=== PATIENT | female | born 1985 ===

== ENCOUNTER 2021-01-24 05:47 | Inpatient (IN) ==
--- NOTE | 2021-01-15 13:40 | History and Physical Report ---
DATE OF ADMISSION: 01/24/2021 The patient is seen in the office and this H and P is being dictated for the day of admission. HISTORY OF PRESENT ILLNESS: This is a 35-year-old , due date is 01/25/2021. The patient is therefore 38 weeks and 5 days today. The patient has had unremarkable ; however, ultrasounds including the one done today showed the infant is breech. I have discussed the risks of version versus section with the patient, and the patient has agreed to undergo section. course is unremarkable. LABORATORIES: The patient's blood type is A negative, antibody negative, rubella immune, GBS negative. HIV negative as well. COURSE: Has been unremarkable. PAST MEDICAL HISTORY: No history of diabetes, hypertension or asthma. PAST SURGICAL HISTORY: The patient has had dental surgery in the past. SOCIAL HISTORY: The patient denies tobacco, drug or alcohol use. FAMILY HISTORY: Unremarkable. Nonsignificant. PHYSICAL EXAMINATION: GENERAL: Well-developed, well-nourished white female in no acute distress. HEART: S1, S2, regular rhythm and rate. LUNGS: Clear to auscultation bilaterally. ABDOMEN: The patient is gravid. EXTREMITIES: No cyanosis, clubbing or edema. ASSESSMENT AND PLAN: A 35-year-old 1, para 0, at 38 weeks and 5 days, breech presentation. Discussed version versus section with the patient. The patient has agreed to undergo section. The patient is scheduled today in the office for date of surgery. The patient will sign consent on the morning of surgery with the physician on-call. We discussed risks of surgery including infection, bleeding, and damage to adjacent structures.
--- NOTE | 2021-01-22 12:55 | Anesthesiology Consultation ---
Date of Service January 22, 2021 Assessment & Plan (1) Encounter for pre-operative examination: Chart Review Chart Review: temporary data entry clerk initiated Per nursing assessment 01/22/21, pt resides in [facility]. No recent travel. Wears mask in public. No known Covid positive contacts or Covid related symptoms. Pt's does get tested occ secondary to [facility] protocol- had Covid test 01/22/21- results pending. No known Covid infection in the past 90 days. Pt will be calling surgeon to get Covid testing done prior to procedure= await results. History Surgery Operation Date: 01/24/21 07:30 Proposed Procedures p Section - Jos Portillo MD Height/Weight Height: 5 ft 5 in Weight: 59.874 kg Allergies Allergy/AdvReac Type Severity Reaction Status Date / Time Penicillins Allergy Intermediate "inflammation Verified 01/22/21 11:35 all over body" Medications Home Medications Medication Instructions Recorded Confirmed Last Taken vit-ferrous sulfat-FA 1 tab PO QAM 01/22/21 01/22/21 Unknown [] Past Medical History Medical History Breech presentation of fetus reason for scheduled Past Family History Family History Grandmother (Paternal) Family history of diabetes mellitus Grandmother (Maternal) Family history of diabetes mellitus Other No family history of adverse response to anesthesia Past Surgical History Surgical History History of wisdom tooth extraction Social History Smoking Status: Never smoker Do You Dip or Chew Tobacco: No Hx Alcohol Use: No Hx Substance Use: No substance use type: does not use
[2021-01-24] MEDS ORDERED: LACTATED RINGER'S 1,000 ML IV SCH ×3 (06:00→09:29)
[2021-01-24] MEDS ORDERED: CITRIC ACID/SODIUM CITRATE 15 ML UDC PO SCH (06:07)
[2021-01-24] MEDS ORDERED: ceFAZolin 2000MG 2,000 MG/15 ML SYR IV SCH (06:10)
[2021-01-24 06:38] LABS: Hemoglobin 11.7 g/dL (12.0-16.0); Mean Corpuscular Hemoglobin 32.4 pg (25-34); Mean Corpuscular Hgb Conc 33.4 g/dL (32-36); RDW Coefficient of Variation 13.5 % (11.5-14.5); Red Blood Count 3.61 M/uL (4.2-5.4); White Blood Count 7.97 K/uL (4.8-10.8)
[2021-01-24] MEDS ORDERED: MoRPHine SULFATE PF 1 MG/ML 10 ML AMP/VIAL ONE (06:44)
[2021-01-24] MEDS ORDERED: fentaNYL citrate 100 MCG/2 ML VIAL ONE (06:44)
[2021-01-24] MEDS ORDERED: OXYTOCIN 10 UNITS/ML VIAL ONE (06:44)
[2021-01-24 06:53] LABS: Basophils # (auto) 0.02 K/uL (0-0.2); Basophils % (auto) 0.3 %; Eosinophils # (auto) 0.13 K/uL (0-0.5); Eosinophils % (auto) 1.6 %; Giant Platelets 1+; Immature Granulocytes # (auto) 0.02 K/uL (0.00-0.02); Immature Granulocytes % (auto) 0.3 %; Lymphocytes % (auto) 21.3 %; Mean Platelet Volume 12.6 fL (7.4-10.4); Monocytes # (auto) 0.54 K/uL (0.11-0.59); Monocytes % (auto) 6.8 %; Neutrophils # (auto) 5.56 K/uL (1.4-6.5); Neutrophils % (auto) 69.7 %; Platelet Count 121 K/uL (130-400); Platelet Estimate Normal (Normal)
[2021-01-24] MEDS ORDERED: diphenhydrAMINE 50 MG/ML VIAL IV PRN (07:16)
[2021-01-24] MEDS ORDERED: ePHEDrine sulfate 50 MG/ML AMP IV PRN (07:16)
[2021-01-24] MEDS ORDERED: MoRPHine SULFATE PF 1 MG/ML 10 ML AMP/VIAL INT SPINAL ONE (07:16)
[2021-01-24] MEDS ORDERED: MoRPHine SULFATE 2 MG/ML CARP IV PRN (07:16)
[2021-01-24] MEDS ORDERED: NALOXONE HCL 0.4 MG/1 ML VIAL/CARP IV PRN (07:16)
[2021-01-24] MEDS ORDERED: NALOXONE HCL 1 MG in SODIUM CHLORIDE 0.9% 1000ML 1,000 ML IV PRN (07:16)
[2021-01-24] MEDS ORDERED: NALOXONE HCL 0.08 MG in SYRINGE 1.8 ML IV PRN (07:16)
[2021-01-24] MEDS ORDERED: LACTATED RINGER'S 500 ML IV PRN (07:16)
[2021-01-24] MEDS ORDERED: PROMETHAZINE HCL 25 MG in SODIUM CHLORIDE 0.9% 50 ML IV PRN (07:16)
[2021-01-24] MEDS ORDERED: ONDANSETRON INJ 2 MG/ML 2 ML VIAL IV PRN (07:16)
[2021-01-24] MEDS ORDERED: DC INTRASPINAL MORPHINE SCH (07:30)
[2021-01-24] MEDS ORDERED: NO NARCOTICS OR SEDATIVES SCH (07:30)
[2021-01-24] MEDS ORDERED: SODIUM CHLORIDE 0.9% 1000ML 1,000 ML IV SCH (07:30)
--- NOTE | 2021-01-24 07:33 | History & Physical Bridge Note ---
Date of Service January 24, 2021 History & Physical Bridge Note I have examined the patient, reviewed the History & Physical and in the interval since the performance of the History & Physical I have noted the following changes of clinical significance: no changes noted
[2021-01-24] MEDS ORDERED: ePHEDrine sulfate 50 MG/ML SYR ONE (08:00)
[2021-01-24] MEDS ORDERED: PHENYLEPHRINE 100MCG/ML 5ML SYR ONE (08:00)
[2021-01-24] MEDS ORDERED: ONDANSETRON INJ 2 MG/ML 2 ML VIAL ONE (08:28)
--- NOTE | 2021-01-24 08:44 | Post Operative Brief Note ---
Immediate Post Op Note v1 Date of Surgery January 24, 2021 Pre & Post Diagnosis Operation Date: 01/24/21 07:30 Pre-Op Diagnosis: Intrauterine at 40 weeks gestation. Breech presentation. Post-Op Diagnosis: Same I identified the patient and participated in the time-out.: Yes Procedure Operation Date: 01/24/21 07:30 Actual Procedures p Section in LD (OR#3) with of live female child at 0813(Not Applicable) - Jos Portillo MD Surgeon Jos Portillo MD Independent Producer BRISA Yost Estimated Blood Loss 600 Findings Consistent with Post-Op Diagnosis Drains Stanton Catheter
--- NOTE | 2021-01-24 09:24 | Anesthesiology Progress Note ---
Date of Service January 24, 2021 Anesthesia Post Procedure Vital Signs Vital Signs: Temp Pulse Resp BP Pulse Ox 01/24/21 09:17 73 98 01/24/21 09:13 60 111/66 01/24/21 09:12 66 97 01/24/21 09:07 66 100 01/24/21 09:03 67 104/65 01/24/21 09:02 71 100 01/24/21 08:57 77 100 01/24/21 08:54 77 104/63 01/24/21 07:08 36.7 C 20 01/24/21 07:04 69 106/73 01/24/21 06:09 36.8 C 70 18 106/75 01/24/21 06:07 36.8 C 18 Transfer of Care Handoff Completed per policy Notes Mental Status: alert / awake / arousable and participated in evaluation Patient Amnestic to Procedure: Yes Nausea / Vomiting: adequately controlled Pain: adequately controlled Airway Patency, RR, SpO2: stable & adequate BP & HR: stable & adequate Hydration State: stable & adequate Anesthetic Complications: no major complications apparent and Pt Satisfied with anesthetic care
[2021-01-24] MEDS ORDERED: BENZOCAINE 20% AER SPR 82.5 GM CAN EXT PRN (09:29)
[2021-01-24] MEDS ORDERED: SENNA 8.6 MG TAB PO PRN (09:29)
[2021-01-24] MEDS ORDERED: HYDROCORTISONE ACETATE 25 MG SUPP PR PRN (09:29)
[2021-01-24] MEDS ORDERED: SUPERCREAM 0.870% 15 GM JAR EXT PRN (09:29)
[2021-01-24] MEDS ORDERED: MAGNESIUM HYDROXIDE SUSP 30 ML UDC PO PRN (09:29)
[2021-01-24] MEDS ORDERED: NON-FORMULARY MEDICATION (Prenatal Vit-Ferrous Sulfat-Fa 27 mg iron- 0.8 mg Tablet) PO SCH (09:29)
[2021-01-24] MEDS ORDERED: DIPHTHERIA/TETANUS/PERTUSSIS 0.5 ML SYR/VIAL IM ONE (09:29)
[2021-01-24] MEDS: KETOROLAC 30 MG/ML VIAL IV PRN ×2 (10:37→23:39)
[2021-01-24] MEDS: OXYTOCIN 20 UNITS in LACTATED RINGER'S 1,000 ML IV SCH ×2 (10:38→19:12)
--- NOTE | 2021-01-24 14:28 | Operative Report (OR) ---
DATE OF OPERATION: 01/24/2021 PREOPERATIVE DIAGNOSES: Term at 40 weeks with flavia breech. POSTOPERATIVE DIAGNOSES: Term at 40 weeks with flavia breech. PROCEDURE: Primary section, low segment, transverse. SURGEON: Jos Portillo MD. ENVIRONMENTAL SAMPLING TECHNICIAN: BRISA Hernandez. ANESTHESIA: Spinal. CLINICAL HISTORY: The patient is a 35-year-old female 1, para 0, at 40 weeks, admitted for an elective primary section for flavia breech presentation. Prior to the start of the procedure, the patient had an ultrasound confirming the presentation. Timeout was called and antibiotics were given preop. DESCRIPTION OF PROCEDURE: Under satisfactory spinal anesthesia, the patient was prepped and draped in usual sterile fashion. A low Pfannenstiel incision was made, carrying down into the abdominal layers in successive layers without difficulty. Upon entering into the lower uterine segment, pickups with teeth and Metzenbaums were then used to develop a bladder flap. A low segment transverse incision over the lower uterine segment was made. The incision was widened in the AP diameter. Amniotic sac was nicked and found to be clear. Baby in the flavia breech presentation. Delivery uneventful delivering a live female with the aid of fundal pressure in the flavia breech presentation without difficulty. The cord was wrapped around the neck x2, loosened at the time of delivery. The cord was doubly clamped and cut. Baby was handed to mixing tank operator. Apgars 8 and 9, weight 6 pounds 10 ounces. Cord blood was obtained. Placenta delivered spontaneously and intact. Uterus was not able to be removed. The ovaries bilaterally were found to be within normal limits. The uterus was closed in a double layer closure with 0 Vicryl suture in a continuous interlocking fashion followed by a second imbricating suture of 0 Vicryl suture. The initial sponge, needle, and instrument count were found to be correct. The lower uterine incision was inspected, no active bleeding. The muscle was reapproximated using 0 Vicryl suture in a [id number] fashion. The fascia was then reapproximated using 0 Vicryl suture in a continuous fashion from both ends. Subcuticular space was then irrigated. Bleeders were cauterized. The skin was then reapproximated with 4-0 Monocryl suture and then Steri-Strips were used for the dressing. Telfa and ABD were applied. Clear urine was noted from the Stanton. ESTIMATED BLOOD LOSS: 600 mL. TOTAL FLUIDS: 700 mL. URINE: 200 mL. The patient was then placed supine on a stretcher. With the final sponge, needle and instrument counts being correct, the patient was placed on a stretcher and taken to recovery room on labor and delivery in stable condition. Jayshree Figueroa was the assistant community director. She was needed for retraction, assisting at delivery and retraction as needed for reapproximating of all the tissues. I attest to the content of the Intraoperative Record and any orders documented therein. Any exception s are noted below.
[2021-01-24] MEDS: SIMETHICONE 80 MG CHEW PO SCH ×3 (15:24→21:30)
[2021-01-24] MEDS: DOCUSATE SODIUM 100 MG CAP PO SCH (21:30)
[2021-01-25] MEDS ORDERED: diphenhydrAMINE 50 MG/ML VIAL IV PRN (01:17)
[2021-01-25] MEDS ORDERED: MEPERIDINE HCL 50 MG/ML CARP IV PRN (01:17)
[2021-01-25] MEDS ORDERED: diphenhydrAMINE Capsule 25 MG CAP PO PRN (01:17)
[2021-01-25] MEDS ORDERED: PROMETHAZINE HCL 25 MG in SODIUM CHLORIDE 0.9% 50 ML IV PRN (01:17)
[2021-01-25] MEDS ORDERED: ONDANSETRON INJ 2 MG/ML 2 ML VIAL IV PRN (01:17)
[2021-01-25] MEDS ORDERED: KETOROLAC 30 MG/ML VIAL IV PRN (01:17)
[2021-01-25] MEDS: oxyCODONE/ACETAMINOPHEN 5mg/325mg TAB PO PRN ×5 (03:37→22:36)
[2021-01-25 06:56] LABS: Hematocrit (blood only) 32.8 % (37-47); Hemoglobin 11.3 g/dL (12.0-16.0); Mean Corpuscular Hemoglobin 32.6 pg (25-34); Mean Corpuscular Hgb Conc 34.5 g/dL (32-36); Mean Corpuscular Volume 94.5 fL (80-100); Mean Platelet Volume 12.9 fL (7.4-10.4); Platelet Count 116 K/uL (130-400); RDW Coefficient of Variation 13.6 % (11.5-14.5); RDW Standard Deviation 46.7 fL (36.4-46.3); Red Blood Count 3.47 M/uL (4.2-5.4); White Blood Count 12.01 K/uL (4.8-10.8)
[2021-01-25 06:57] LABS: Basophils # (auto) 0.01 K/uL (0-0.2); Basophils % (auto) 0.1 %; Eosinophils # (auto) 0.05 K/uL (0-0.5); Eosinophils % (auto) 0.4 %; Immature Granulocytes # (auto) 0.02 K/uL (0.00-0.02); Immature Granulocytes % (auto) 0.2 %; Lymphocytes # (auto) 0.95 K/uL (1.2-3.4); Lymphocytes % (auto) 7.9 %; Monocytes # (auto) 0.37 K/uL (0.11-0.59); Monocytes % (auto) 3.1 %; Neutrophils # (auto) 10.61 K/uL (1.4-6.5); Neutrophils % (auto) 88.3 %; Platelet Estimate Normal (Normal)
--- NOTE | 2021-01-25 07:46 | Obstetrical Progress Note ---
Date of Service January 25, 2021 Assessment & Plan Admission and Anticipated Discharge Date Admission Date: January 24, 2021 Subjective Patient is seen and examined. She feels well, no complaints. Pain is under control with oral meds. Ambulating without dizziness Voiding without difficulty Tolerating regular diet with out N&V Flatus + BM neg Bleeding is minimal No fever/ chills/ CP/ SOB/ N&V/ Leg pain Breast feeding without problems Vital Signs Temp Pulse Pulse Resp BP BP Pulse Ox 01/25/21 07:03 36.7 C 76 16 97/54 L 98 01/25/21 04:30 36.4 C L 72 18 99/62 L 99 01/25/21 01:15 18 99 01/25/21 00:30 18 100 01/24/21 23:05 36.8 C 65 18 100/63 100 01/24/21 22:00 16 100 01/24/21 21:00 36.7 C 71 18 107/70 100 01/24/21 20:00 16 100 Lab Results 01/24/21 01/24/21 01/25/21 Range/Units 06:15 06:15 06:01 WBC 7.97 12.01 H (4.8-10.8) K/uL RBC 3.61 L 3.47 L (4.2-5.4) M/uL Hgb 11.7 L 11.3 L (12.0-16.0) g/dL Hct 35.0 L 32.8 L (37-47) % MCV 97.0 94.5 (80-100) fL MCH 32.4 32.6 (25-34) pg MCHC 33.4 34.5 (32-36) g/dL RDW Std Deviation 48.0 H 46.7 H (36.4-46.3) fL RDW Coeff of Lizzy 13.5 13.6 (11.5-14.5) % Plt Count 121 L 116 L (130-400) K/uL MPV 12.6 H 12.9 H (7.4-10.4) fL Immature Gran % (Auto) 0.3 0.2 % Neut % (Auto) 69.7 88.3 % Lymph % (Auto) 21.3 7.9 % [place] % (Auto) 6.8 3.1 % Eos % (Auto) 1.6 0.4 % Baso % (Auto) 0.3 0.1 % Neut # (Auto) 5.56 10.61 H (1.4-6.5) K/uL Lymph # (Auto) 1.70 0.95 L (1.2-3.4) K/uL [place] # (Auto) 0.54 0.37 (0.11-0.59) K/uL Eos # (Auto) 0.13 0.05 (0-0.5) K/uL Baso # (Auto) 0.02 0.01 (0-0.2) K/uL Immature Gran # (Auto) 0.02 0.02 (0.00-0.02) K/uL Platelet Estimate Normal Normal (Normal) Giant Platelets 1+ Blood Type A Negative Antibody Screen POSITIVE A Antibody Identification Anti-D due to RhIg Antibody ID Comment PE: General: Alert, orientedx3, NAD CVS: S1S2 RRR Lungs; CTAB Abd: soft, NT, ND, BS+, fundus firm, below Umbilicus Incision/ Dressing: Clean, dry, intact Perineum intact, Lochia rubra minimal Ext; NT, no edema AP: 35 yo s/p C Section, pod# 1 VSS Afebrile doing well Continue routine postop care Encourage ambulation, PO intake All questions were answered Results & Data ([facility]) Vital Signs (Past 12 Hours) Vital Signs Temp Pulse Pulse Resp BP BP Pulse Ox 01/25/21 07:03 36.7 C 76 16 97/54 L 98 01/25/21 04:30 36.4 C L 72 18 99/62 L 99 01/25/21 01:15 18 99 01/25/21 00:30 18 100 01/24/21 23:05 36.8 C 65 18 100/63 100 01/24/21 22:00 16 100 01/24/21 21:00 36.7 C 71 18 107/70 100 01/24/21 20:00 16 100
[2021-01-25] MEDS: DOCUSATE SODIUM 100 MG CAP PO SCH ×2 (08:46→19:54)
[2021-01-25] MEDS: FERROUS SULFATE 325 MG TAB PO SCH (08:46)
[2021-01-25] MEDS: PRENATAL VITAMIN 1 TAB PO SCH (08:46)
[2021-01-25] MEDS: SIMETHICONE 80 MG CHEW PO SCH ×4 (08:46→19:54)
[2021-01-25] MEDS: IBUPROFEN 600 MG TAB PO PRN ×4 (08:54→22:36)
[2021-01-25] MEDS ORDERED: bisacodyL 5 MG TABEC PO SCH (20:00)
[2021-01-26] MEDS: oxyCODONE/ACETAMINOPHEN 5mg/325mg TAB PO PRN ×4 (02:57→21:03)
[2021-01-26] MEDS: IBUPROFEN 600 MG TAB PO PRN ×4 (06:25→21:04)
[2021-01-26 06:43] LABS: Hematocrit (blood only) 31.4 % (37-47); Hemoglobin 10.5 g/dL (12.0-16.0); Mean Corpuscular Hemoglobin 32.6 pg (25-34); Mean Corpuscular Hgb Conc 33.4 g/dL (32-36); Mean Corpuscular Volume 97.5 fL (80-100); Mean Platelet Volume 12.6 fL (7.4-10.4); Platelet Count 122 K/uL (130-400); RDW Coefficient of Variation 13.5 % (11.5-14.5); Red Blood Count 3.22 M/uL (4.2-5.4); White Blood Count 9.91 K/uL (4.8-10.8)
[2021-01-26 07:17] LABS: Basophils # (auto) 0.03 K/uL (0-0.2); Basophils % (auto) 0.3 %; Eosinophils # (auto) 0.22 K/uL (0-0.5); Eosinophils % (auto) 2.2 %; Immature Granulocytes # (auto) 0.03 K/uL (0.00-0.02); Immature Granulocytes % (auto) 0.3 %; Lymphocytes # (auto) 1.18 K/uL (1.2-3.4); Lymphocytes % (auto) 11.9 %; Monocytes # (auto) 0.54 K/uL (0.11-0.59); Monocytes % (auto) 5.4 %; Neutrophils # (auto) 7.91 K/uL (1.4-6.5); Neutrophils % (auto) 79.9 %
[2021-01-26] MEDS: FERROUS SULFATE 325 MG TAB PO SCH (08:25)
[2021-01-26] MEDS: DOCUSATE SODIUM 100 MG CAP PO SCH ×2 (08:25→21:03)
[2021-01-26] MEDS: SIMETHICONE 80 MG CHEW PO SCH ×4 (08:25→21:03)
[2021-01-26] MEDS: PRENATAL VITAMIN 1 TAB PO SCH (08:25)
[2021-01-26] MEDS ORDERED: bisacodyL 10 MG SUPP PR PRN (08:57)
[2021-01-26] MEDS ORDERED: ACETAMINOPHEN 325 MG TAB PO PRN (10:09)
--- NOTE | 2021-01-26 10:11 | Obstetrical Progress Note ---
Date of Service January 26, 2021 Assessment & Plan Admission and Anticipated Discharge Date Admission Date: January 24, 2021 Subjective Patient is seen and examined. She feels well, no complaints. Pain is under control with oral meds. Ambulating without dizziness. Voiding without difficulty Tolerating regular diet with out N&V Flatus + BM neg Bleeding is minimal No fever/ chills/ CP/ SOB/ N&V/ Leg pain Breast feeding without problems Vital Signs Temp Pulse Pulse Resp BP BP BP 01/26/21 07:09 36.8 C 65 16 103/67 01/26/21 00:00 36.8 C 77 16 80/40 L 01/25/21 15:45 36.7 C 73 16 96/60 L 01/25/21 13:35 36.9 C 80 18 100/63 01/25/21 10:55 36.7 C 70 16 115/69 Pulse Ox 01/26/21 07:09 99 01/26/21 00:00 97 01/25/21 15:45 97 01/25/21 13:35 98 01/25/21 10:55 98 Lab Results 01/24/21 01/24/21 01/25/21 Range/Units 06:15 06:15 06:01 WBC 7.97 (4.8-10.8) K/uL RBC 3.61 L (4.2-5.4) M/uL Hgb 11.7 L (12.0-16.0) g/dL Hct 35.0 L (37-47) % MCV 97.0 (80-100) fL MCH 32.4 (25-34) pg MCHC 33.4 (32-36) g/dL RDW Std Deviation 48.0 H (36.4-46.3) fL RDW Coeff of Lizzy 13.5 (11.5-14.5) % Plt Count 121 L (130-400) K/uL MPV 12.6 H (7.4-10.4) fL Immature Gran % (Auto) 0.3 % Neut % (Auto) 69.7 % Lymph % (Auto) 21.3 % [place] % (Auto) 6.8 % Eos % (Auto) 1.6 % Baso % (Auto) 0.3 % Neut # (Auto) 5.56 (1.4-6.5) K/uL Lymph # (Auto) 1.70 (1.2-3.4) K/uL [place] # (Auto) 0.54 (0.11-0.59) K/uL Eos # (Auto) 0.13 (0-0.5) K/uL Baso # (Auto) 0.02 (0-0.2) K/uL Immature Gran # (Auto) 0.02 (0.00-0.02) K/uL Platelet Estimate Normal (Normal) Giant Platelets 1+ Blood Type A Negative A Negative Antibody Screen POSITIVE A Cancelled Antibody Identification Anti-D due to RhIg Antibody ID Comment Screen Negative (Negative) 01/25/21 01/26/21 Range/Units 06:01 06:14 WBC 12.01 H 9.91 (4.8-10.8) K/uL RBC 3.47 L 3.22 L (4.2-5.4) M/uL Hgb 11.3 L 10.5 L (12.0-16.0) g/dL Hct 32.8 L 31.4 L (37-47) % MCV 94.5 97.5 (80-100) fL MCH 32.6 32.6 (25-34) pg MCHC 34.5 33.4 (32-36) g/dL RDW Std Deviation 46.7 H 48.0 H (36.4-46.3) fL RDW Coeff of Lizzy 13.6 13.5 (11.5-14.5) % Plt Count 116 L 122 L (130-400) K/uL MPV 12.9 H 12.6 H (7.4-10.4) fL Immature Gran % (Auto) 0.2 0.3 % Neut % (Auto) 88.3 79.9 % Lymph % (Auto) 7.9 11.9 % [place] % (Auto) 3.1 5.4 % Eos % (Auto) 0.4 2.2 % Baso % (Auto) 0.1 0.3 % Neut # (Auto) 10.61 H 7.91 H (1.4-6.5) K/uL Lymph # (Auto) 0.95 L 1.18 L (1.2-3.4) K/uL [place] # (Auto) 0.37 0.54 (0.11-0.59) K/uL Eos # (Auto) 0.05 0.22 (0-0.5) K/uL Baso # (Auto) 0.01 0.03 (0-0.2) K/uL Immature Gran # (Auto) 0.02 0.03 H (0.00-0.02) K/uL Platelet Estimate Normal (Normal) Giant Platelets Blood Type Antibody Screen Antibody Identification Antibody ID Comment Screen (Negative) PE: General: Alert, orientedx3, NAD CVS: S1S2 RRR Lungs; CTAB Abd: soft, NT, ND, BS+, fundus firm, below Umbilicus Incision: Clean, dry, intact Perineum intact, Lochia rubra minimal Ext; NT, no edema AP: 35 yo s/p C Section, pod# 2 VSS Afebrile doing well Continue routine postop care Encourage ambulation, PO intake All questions were answered D/C home tomorrow Results & Data ([facility]) Vital Signs (Past 12 Hours) Vital Signs Temp Pulse Resp BP BP Pulse Ox 01/26/21 07:09 36.8 C 65 16 103/67 99 01/26/21 00:00 36.8 C 77 16 80/40 L 97
[2021-01-27] MEDS: IBUPROFEN 600 MG TAB PO PRN ×3 (04:16→12:28)
[2021-01-27] MEDS: oxyCODONE/ACETAMINOPHEN 5mg/325mg TAB PO PRN ×3 (04:17→12:28)
[2021-01-27] MEDS: PRENATAL VITAMIN 1 TAB PO SCH (08:31)
[2021-01-27] MEDS: DOCUSATE SODIUM 100 MG CAP PO SCH (08:31)
[2021-01-27] MEDS: SIMETHICONE 80 MG CHEW PO SCH (08:31)
[2021-01-27] MEDS: FERROUS SULFATE 325 MG TAB PO SCH (08:31)
--- NOTE | 2021-01-27 08:34 | Obstetrical Progress Note ---
Date of Service January 27, 2021 Assessment & Plan Admission and Anticipated Discharge Date Admission Date: January 24, 2021 Subjective POD#3 doing well passing gas. +BM out of bed tolerating diet Physical Exam Constitutional: WD/WN, vitals as above comfortable incision c/d/i abdomen soft and non-tender no edema neg En's for d/c Results & Data ([facility]) Vital Signs (Past 12 Hours) Vital Signs Temp Pulse Resp BP Pulse Ox 01/27/21 07:06 36.8 C 70 16 110/75 97 01/27/21 00:00 36.8 C 68 18 106/65 Laboratory Results 01/24/21 01/24/21 01/25/21 06:15 06:15 06:01 WBC 7.97 RBC 3.61 L Hgb 11.7 L Hct 35.0 L MCV 97.0 MCH 32.4 MCHC 33.4 RDW Std Deviation 48.0 H RDW Coeff of Lizzy 13.5 Plt Count 121 L MPV 12.6 H Immature Gran % (Auto) 0.3 Neut % (Auto) 69.7 Lymph % (Auto) 21.3 [place] % (Auto) 6.8 Eos % (Auto) 1.6 Baso % (Auto) 0.3 Neut # (Auto) 5.56 Lymph # (Auto) 1.70 [place] # (Auto) 0.54 Eos # (Auto) 0.13 Baso # (Auto) 0.02 Immature Gran # (Auto) 0.02 Platelet Estimate Normal Giant Platelets 1+ Blood Type A Negative A Negative Antibody Screen POSITIVE A Cancelled Antibody Identification Anti-D due to RhIg Antibody ID Comment Screen Negative 01/25/21 01/26/21 06:01 06:14 WBC 12.01 H 9.91 RBC 3.47 L 3.22 L Hgb 11.3 L 10.5 L Hct 32.8 L 31.4 L MCV 94.5 97.5 MCH 32.6 32.6 MCHC 34.5 33.4 RDW Std Deviation 46.7 H 48.0 H RDW Coeff of Lizzy 13.6 13.5 Plt Count 116 L 122 L MPV 12.9 H 12.6 H Immature Gran % (Auto) 0.2 0.3 Neut % (Auto) 88.3 79.9 Lymph % (Auto) 7.9 11.9 [place] % (Auto) 3.1 5.4 Eos % (Auto) 0.4 2.2 Baso % (Auto) 0.1 0.3 Neut # (Auto) 10.61 H 7.91 H Lymph # (Auto) 0.95 L 1.18 L [place] # (Auto) 0.37 0.54 Eos # (Auto) 0.05 0.22 Baso # (Auto) 0.01 0.03 Immature Gran # (Auto) 0.02 0.03 H Platelet Estimate Normal Giant Platelets Blood Type Antibody Screen Antibody Identification Antibody ID Comment Screen
--- NOTE | 2021-01-31 13:24 | Discharge Summary (DS) ---
REASON FOR ADMISSION AND HOSPITAL COURSE: The patient is a 35-year-old female 1, para 0 at 40 weeks, admitted for an elective primary section for flavia breech presentation. The patient had an ultrasound done at bedside prior to the start of the procedure. She had a confirmed flavia breech presentation on ultrasound and a decision was made to continue with the . was done under spinal anesthesia without difficulty. The patient was a flavia breech presentation live female, Apgars were 8 and 9. weight was 6 pounds 10 ounces. There was a nuchal cord x2 at the time of delivery. Hospital course was unremarkable. The patient subsequently was discharged in stable condition on 01/27/2021. Regular diet on discharge. HOME GOING INSTRUCTIONS: Included followup in 1 week for incision check. Percocet and Motrin given for pain and follow up for any conditions prior to office visit. CONDITION ON DISCHARGE: Stable.
== END 2021-01-27 13:05 | disposition home or self-care (01) | DRG 788 ==
LOC: 4S2 05:47 → EDSTATUS 07:30

== ENCOUNTER 2023-02-26 16:56 | Inpatient (IN) ==
[2023-02-26] MEDS ORDERED: LIDOCAINE 1% LOCAL 20 ML VIAL INFIL PRN (18:02)
[2023-02-26] MEDS ORDERED: OXYTOCIN 30 UNITS/500 ML BAG IV PRN (18:02)
[2023-02-26 18:31] LABS: Hematocrit (blood only) 39.2 % (37.0-47.0); Hemoglobin 13.1 g/dl (12.0-16.0); Mean Corpuscular Hemoglobin 32.1 pg (25.0-34.0); Mean Corpuscular Hgb Conc 33.4 g/dL (32.0-36.0); Mean Corpuscular Volume 96.1 fL (80.0-100.0); Mean Platelet Volume 13.7 fL (9.4-12.4); Platelet Count 144 K/uL (130-400); RDW Coefficient of Variation 12.6 % (11.5-14.5); RDW Standard Deviation 44.7 fL (36.4-46.3); Red Blood Count 4.08 M/uL (4.20-5.40); White Blood Count 10.69 K/ul (4.8-10.8)
--- NOTE | 2023-02-26 21:58 | History & Physical Report ---
Date of Service February 26, 2023 Assessment & Plan (1) History of delivery, currently : Plan: multip in early labor with prior LTCS for breech presentation requesting continue to monitor for cervical change epidural analgesia if requested anticipate vaginal Admission and Anticipated Discharge Date Admission Date: February 26, 2023 History of Present Illness Primary Care Provider: LB Groe Patient is a 38 yo EDC 02/25 who presents at 40 1/7 weeks with regular ctns that are now every 3 minutes. (-) SPROM, (-) bloody show. GBS -negative. complicated by AMA and prior C/Section done for breech presentation. patient hopes to this time. Allergies Allergy/AdvReac Type Severity Reaction Status Date / Time Penicillins Allergy Intermediate "inflammation Verified 02/24/23 08:15 all over body" Home Medications Medication Instructions Recorded Confirmed Type vitamin-ferrous sulfate 1 tab PO QAM 01/22/21 02/24/23 History 27 mg iron-folic acid 0.8 mg tablet Patient History Medical History (Updated 02/24/23 @ 08:52 by Catalina Fair) History of chicken pox History of COVID-summer- flu like symptoms, fatigue; resolved Surgical History History of wisdom tooth extraction Hx of section Family History Grandmother (Paternal) Family history of diabetes mellitus Breast cancer Ovarian cancer Grandmother (Maternal) Family history of diabetes mellitus Breast cancer Father Cancer Brother Cancer Other No family history of adverse response to anesthesia Denies family history of Prostate cancer Colorectal cancer Social History Smoking Status: Never smoker Second Hand Exposure: No; Do You Dip or Chew Tobacco: No; Hx Alcohol Use: No Hx Substance Use: No Preferred Language: Bhutanese Communication Ability: Effective Visual Impairment: No Limitations Hearing Ability: Normal Bedspread Inspector Required: No Beliefs That Will Affect Care: None marital status: marital status details: Kane Arroyo [phone] Current Living Situation: Spouse Current Living Situation Comment: Lives with and daughter, current occupational status: unemployed current occupation: homemaker Other Information That Helps Us Care for You: No Feels Safe at Home: Yes Safety Concerns: Feels Safe At This Time Assistive Devices: None Review of Systems All systems reviewed & are unremarkable except as noted in HPI & below Physical Exam Constitutional: WD/WN, vitals as above Psychiatric: A+Ox3, euthymic affect Genitourinary: OB Exam Abdomen: + vertex, + estimated weight (7-8 pounds) and + regular contractions (Q 4 minutes) Manual OB Exam: + cervical dilation 2 cm, + cervical effacement 70% and + station -1 OB Exam Monitor Tracing: + external FHT monitor used, + external uterine monitor used, + category I and + normal FHT variability Results & Data Vital Signs (Past 12 Hours) Vital Signs Temp Pulse Resp BP 02/26/23 17:24 98.4 F 22 02/26/23 19:30 18 02/26/23 19:30 98.1 F 18 02/26/23 19:28 82 128/77 02/26/23 17:20 72 124/84 Code Status & VTE Plan VTE Prophylaxis Plan VTE Prophylaxis will be ordered: No Coding Level of Care Code None Diagnoses History of delivery, currently O34.219
--- NOTE | 2023-02-27 07:32 | Labor Progress Brief Note ---
Date of Service February 27, 2023 Subjective Was called into the room because of a decel. Assessment & Plan (1) Encounter for trial of labor: Plan Making slow but positive change. Fetus is category two with variables with contractions. Return to baseline and mod variability. Will continue expectant management as making slow positive progress. Admission and Anticipated Discharge Date Admission Date: February 26, 2023 Physical Exam Physical Exam: cx--6-7/90/-1 toco--q2-4 mins efm--130s with mod variability, small accels, variable decels with some contractions, recent decel to 70s with contraction with spon return to baseline Results & Data Vital Signs (Past 12 Hours) Vital Signs Temp Pulse Resp BP 02/27/23 07:26 95 H 111/77 02/27/23 04:30 18 02/27/23 04:30 36.9 C 18 02/27/23 04:40 90 110/63 02/27/23 02:00 16 02/27/23 02:00 36.7 C 16 02/26/23 23:00 18 02/26/23 23:00 36.9 C 18 02/26/23 23:03 75 106/69 02/26/23 19:30 18 02/26/23 19:30 36.7 C 18 02/26/23 19:28 82 128/77 Coding Level of Care Code None Diagnoses Encounter for trial of labor
[2023-02-27] MEDS: LACTATED RINGER'S 1,000 ML IV PRN ×3 (07:38→16:57)
--- NOTE | 2023-02-27 09:56 | Labor Progress Brief Note ---
Date of Service February 27, 2023 Subjective Patient notes constant discomfort in the left groin. Assessment & Plan (1) Encounter for trial of labor: Plan ctx have spaced and I have recommended pitocin. NOt contraindicated in ANA MARIA. Discussed potential risks. However, will not be making change and progressing without better contractions, which will likely need pit augmentation. Patient is asking for time for a nap. Offered epidural, declines. She notes she is napping between contractions and that is ok with her. Plan to wait another hour and reassess. Fetus is category two because of the variables but is reassuring between contractions. Likely have a cord somewhere. Patient is afebrile, vss. Admission and Anticipated Discharge Date Admission Date: February 26, 2023 Physical Exam Physical Exam: cx--unchanged toco--have spaced a bit, q 5-7 min efm--150s with mod variability, small accels, variable decels with contractions Results & Data Vital Signs (Past 12 Hours) Vital Signs Temp Pulse Resp BP 02/27/23 09:22 36.9 C 85 20 100/62 02/27/23 07:26 36.8 C 95 H 20 111/77 02/27/23 04:30 18 02/27/23 04:30 36.9 C 18 02/27/23 04:40 90 110/63 02/27/23 02:00 16 02/27/23 02:00 36.7 C 16 02/26/23 23:00 18 02/26/23 23:00 36.9 C 18 02/26/23 23:03 75 106/69 Coding Level of Care Code None Diagnoses Encounter for trial of labor
[2023-02-27] MEDS ORDERED: OXYTOCIN 30 UNITS/500 ML BAG IV PRN ×2 (11:00→20:05)
--- NOTE | 2023-02-27 11:06 | Communication Note ---
Date of Service: February 27, 2023 Pateint has been standing at bedside. contractions has not really increased in frequency. Agreeable to pitocin augmentation. efm--140s with mod variability, small accels, variable decels with some contractions Start pitocin, low and slow. Close monitoring.
[2023-02-27] MEDS ORDERED: SODIUM CHLORIDE 0.9% PF INJ 10 ML VIAL ONE (12:57)
[2023-02-27] MEDS ORDERED: BUPIVACAINE 0.25% PF 30 ML VIAL ONE (12:57)
[2023-02-27] MEDS ORDERED: fentaNYL citrate PF 100 MCG/2 ML VIAL ONE (12:57)
[2023-02-27] MEDS ORDERED: LIDOCAINE 2%/EPINEPHRINE 1:200,000 20 ML PF ONE (12:57)
[2023-02-27] MEDS ORDERED: fentaNYL 2MCG/ML ROPIVACAINE 1.25MG/ML 100 ML BAG EPI ONE (12:58)
[2023-02-27] MEDS ORDERED: ePHEDrine sulfate 50 MG/ML AMP ONE (12:58)
--- NOTE | 2023-02-27 13:02 | Labor Progress Brief Note ---
Date of Service February 27, 2023 Subjective Feeling exhausted and more painful w/ ctx Assessment & Plan (1) Encounter for trial of labor: Plan: 38 yo at 40 2/7 wga admitted for tolac VSS Fetus cat 2 but has been reassuring w/ mod variabiilty and accels Labor - pit at 3, cervix unchanged GBS neg pt is exhausted and is desiring of epidural, will contact anesthesia Admission and Anticipated Discharge Date Admission Date: February 26, 2023 Physical Exam Genitourinary: Manual OB Exam: + cervical dilation (6.5), + cervical effacement 80% and + station -1 and 0 OB Exam Monitor Tracing: + external FHT monitor used, + external uterine monitor used (5-6) and + category II (140/mod/+accel/-intermit variables) Results & Data Vital Signs (Past 12 Hours) Vital Signs Temp Pulse Resp BP 02/27/23 12:00 87 121/75 02/27/23 11:00 20 02/27/23 11:00 98.2 F 20 02/27/23 10:59 111 H 144/65 H 02/27/23 09:22 98.4 F 85 20 100/62 02/27/23 07:26 98.2 F 95 H 20 111/77 02/27/23 04:30 18 02/27/23 04:30 98.4 F 18 02/27/23 04:40 90 110/63 02/27/23 02:00 16 02/27/23 02:00 98.1 F 16 Coding Level of Care Code None Diagnoses Encounter for trial of labor
--- NOTE | 2023-02-27 13:09 | Anesthesiology Consultation ---
Date of Service February 27, 2023 Assessment & Plan ASA ASA3 Proposed Anesthesia Anesthesia Type: General Risk / Benefits Reviewed With: PT / POA / Parent / Guardian, Accepts Plan and Informed Consent Obtained Additional Comments: History Height/Weight Height: 5 ft 4 in Weight: 61.518 kg Allergies Allergy/AdvReac Type Severity Reaction Status Date / Time Penicillins Allergy Intermediate "inflammation Verified 02/24/23 08:15 all over body" Medications Home Medications Medication Instructions Recorded Confirmed Last Taken vit no.95-ferrous 1 tab PO DAILY 02/27/23 02/27/23 02/26/23 09:00 fumarate 28 mg-folic acid 800 mcg tablet () Active Medications Generic Name Dose Route Start Last Admin Trade Name Freq PRN Reason Stop Dose Admin Lactated Ringer's 1,000 mls @ 125 mls/hr 02/26/23 18:02 02/27/23 13:10 Lr IV 02/28/23 18:01 999 mls/hr .Q8H PRN Administration L&D Protocol Protocol Oxytocin 30 units in 500 mls @ 0 mls/hr 02/27/23 11:00 02/27/23 13:04 Pitocin IV 03/01/23 10:59 0 units/hr .Q0M PRN 0 mls/hr Labor Induction/Augmentation Titration Protocol 0 UNITS/HR Past Medical History Medical History History of chicken pox History of COVID-summer- flu like symptoms, fatigue; resolved Exercise / Class Metabolic Activity II 4-5 Yardwork/Stairs/Walk up hill Past Family History Family History Grandmother (Paternal) Family history of diabetes mellitus Breast cancer Ovarian cancer Grandmother (Maternal) Family history of diabetes mellitus Breast cancer Father Cancer non hodgkins Brother Cancer hodgkins lymphoma Other No family history of adverse response to anesthesia Denies family history of Prostate cancer Colorectal cancer Past Surgical History Surgical History History of wisdom tooth extraction Hx of section Past Anesthesia History No Hx of Anesthesia Complications and No Family Hx of Anesthesia Complications History of PONV No Hx of PONV and No Hx of Motion Sickness Social History Smoking Status: Never smoker Do You Dip or Chew Tobacco: No Hx Alcohol Use: No Hx Substance Use: No substance use type: does not use Review of Systems denies fever/cough/ colds/ chest pain/ SOB/ SHILOH denies SHILOH Physical Exam Vital Signs Last Vital Signs Temp 36.8 C 02/27/23 13:09 Pulse 88 02/27/23 13:46 Resp 16 02/27/23 13:09 BP 124/65 02/27/23 13:46 Pulse Ox 100 02/27/23 13:41 ENMT Mouth: no TMJ abnormality and no dentition abnormality Thyromental Distance: > or= 3.5 Finger Breadths Mallampati Class: II Neck neck extension not limited Respiratory normal respiratory effort; no respiratory distress Auscultation: lungs clear to auscultation bilaterally Cardiovascular Rate/Rhythm: regular rate and regular rhythm Neurologic moves all extremities Psychiatric Orientation: alert and oriented x 3 Testing Laboratory Results 02/26/23 18:14 Blood Type A Negative 02/26/23 18:14 Antibody Screen NEGATIVE 02/26/23 18:14
[2023-02-27] MEDS ORDERED: NALOXONE HCL 1 MG in SODIUM CHLORIDE 0.9% 1000ML 1,000 ML IV PRN (13:11)
[2023-02-27] MEDS ORDERED: fentaNYL 2MCG/ML ROPIVACAINE 1.25MG/ML 100 ML BAG EPI PRN (13:11)
[2023-02-27] MEDS ORDERED: SODIUM CHLORIDE 0.9% PF INJ 10 ML VIAL EPI PRN (13:11)
[2023-02-27] MEDS ORDERED: ROPIVACAINE 0.5% PF 5 MG/ML 20 ML VIAL EPI PRN (13:11)
[2023-02-27] MEDS ORDERED: SODIUM CHLORIDE 0.9% PF INJ 10 ML VIAL EPI STA (13:11)
[2023-02-27] MEDS ORDERED: NALOXONE HCL 0.4 MG/1 ML VIAL/CARP IV PRN (13:11)
[2023-02-27] MEDS ORDERED: fentaNYL citrate PF 100 MCG/2 ML VIAL EPI STA (13:11)
[2023-02-27] MEDS ORDERED: ePHEDrine sulfate 50 MG/ML AMP IV PRN (13:11)
[2023-02-27] MEDS ORDERED: LIDOCAINE 2%/EPINEPHRINE 1:200,000 20 ML PF EPI STA (13:11)
[2023-02-27] MEDS ORDERED: fentaNYL citrate PF 100 MCG/2 ML VIAL EPI PRN (13:11)
[2023-02-27] MEDS ORDERED: NALBUPHINE HCL INJ 10 MG/ML AMP IV PRN (13:11)
[2023-02-27] MEDS ORDERED: ONDANSETRON INJ 2 MG/ML 2 ML VIAL IV PRN (13:11)
[2023-02-27] MEDS ORDERED: BUPIVACAINE 0.25% PF 30 ML VIAL EPI STA (13:11)
[2023-02-27] MEDS ORDERED: LIDOCAINE 2% MPF LOCAL 5 ML VIAL EPI PRN (13:11)
[2023-02-27] MEDS ORDERED: BUPIVACAINE 0.25% PF 30 ML VIAL EPI PRN (13:11)
[2023-02-27] MEDS ORDERED: diphenhydrAMINE 50 MG/ML VIAL IV PRN (13:11)
--- NOTE | 2023-02-27 19:45 | Anesthesia Procedure Note ---
Date of Service February 27, 2023 Anesthesia Post Epidural Note Vital Signs Vital Signs: Temp Pulse Resp BP Pulse Ox 36.9 C 82 20 106/63 98 02/27/23 17:02 02/27/23 19:41 02/27/23 17:02 02/27/23 19:41 02/27/23 19:27 Pain Intensity Bilateral Abdomen: Pain Intensity: 5 Notes Mental Status: alert / awake / arousable and participated in evaluation Nausea / Vomiting: adequately controlled Pain: adequately controlled Airway Patency, RR, SpO2: stable & adequate BP & HR: stable & adequate Hydration State: stable & adequate Neuraxial Anesthesia: was administered and sensory block is resolving Anesthetic Complications: no major complications apparent and Pt Satisfied with anesthetic care Epidural: Removed without complications and With tip intact
[2023-02-27] MEDS ORDERED: DIPHTHERIA/TETANUS/PERTUSSIS Vaccine (Tdap, Age 7+yrs) 0.5mL SYR/VL IM ONE (20:05)
[2023-02-27] MEDS ORDERED: BENZOCAINE 20% AER SPR 82.5 GM CAN EXT PRN (20:05)
[2023-02-27] MEDS ORDERED: bisacodyL 10 MG SUPP PR PRN (20:05)
[2023-02-27] MEDS ORDERED: HYDROCORTISONE ACETATE 25 MG SUPP PR PRN (20:05)
[2023-02-27] MEDS ORDERED: ACETAMINOPHEN 325 MG TAB PO PRN (20:05)
--- NOTE | 2023-02-27 20:08 | Delivery Summary ---
Vaginal Delivery Summary Date of Service February 27, 2023 Vaginal Delivery Summary (vaginal laceration) PREOPERATIVE DIAGNOSIS: 1. Single intrauterine at 40 2/7 wga 2. Labor 3. History of CS x 1 4. Desires TOLAC 5. AMA POSTOPERATIVE DIAGNOSIS: 1. Single intrauterine at 40 2/7 wga 2. Labor 3. History of CS x 1 4. Desires TOLAC 5. AMA 6. Delivered PROCEDURE: 1. Vaginal after SURGEON: Aleshia Driver MD ANESTHESIA: Epidural. ESTIMATED BLOOD LOSS: 300 mL FLUIDS: Continuous LR. URINE OUTPUT: Not measured COMPLICATIONS: None. CONDITION: Stable. INDICATIONS: 38 yo at 40 2/7 wga presented last evening in labor. She progressed slowly spontaneously and underwent arom. She continued to progress slowly to about 6-7cm at which point contractions slowed down. She was counseled regarding pitocin and amenable to it. She later received an epidural for pain control and progressed to complete and desired to push. FINDINGS: A viable male , weight pending with Apgars of 7 and 9 at 1 and 5 minutes respectively. SPECIMEN: Cord blood OPERATIVE REPORT: The patient progressed to 10 cm, 100% effaced and +2 station, pushed over intact perineum with anesthesia to deliver a viable male infant, weight and Apgars as above. Head of delivered in DANITA position. Nuchal cord x 2 and body cord were noted after delivery. Body and shoulders were delivered without difficulty. was delivered to maternal abdomen and nursing staff. Delayed cord clamping was performed. Cord was clamped and cut. Cord blood was obtained. Placenta delivered spontaneously intact with 3-vessel cord. IV oxytocin and fundal massage were given for excellent hemostasis. Vagina, cervix, perineum, and placenta were inspected. A vaginal laceration was noted and repaired using 3-0 vicryl. Perineal abrasion was noted and not needed to be repaired. Sponge and needle counts correct x2. No sponges were left behind. Mother and stable in immediate period. [facility] [place] Vaginal Delivery Charge Vaginal Delivery Codes: 77888 global code for the antepartum, delivery, and post- Delivery Type Details: (vaginal laceration)
[2023-02-27] MEDS: IBUPROFEN 600 MG TAB PO PRN (22:26)
--- NOTE | 2023-02-28 06:00 | Obstetrical Progress Note ---
Date of Service February 28, 2023 Assessment & Plan (1) Encounter for trial of labor: (2) History of delivery, currently : (3) (vaginal after ): Plan Awilda is a 38 y/o female who is PPD #1 following delivery at 40w2d. -Meeting all milestones -Vital signs reviewed and WNL -A-/GBS neg/Rubella immune -Follow up in 6 weeks for appointment -Continue routine care -Patient desires d/c later today Admission and Anticipated Discharge Date Admission Date: February 26, 2023 Supervising Physician Co-Signing Physician Notes Resident Physician Supervision Note: I interviewed and examined the patient. Discussed with Dr. Srivastava and agree with findings and plan as documented in the note. Any exceptions or clarifications are listed here: PP1 s/p , doing well. VSS, exam benign and wnl. Desires d/c home today, ok to do so after 24 hrs Documented By: Aleshia Driver MD Subjective Awilda is a 38 y/o female who is PPD #1 following delivery at 40w2d. She reports feeling well overall this morning. Notes some abdominal cramping but pain well managed on analgesics. Voiding without issue, some burning when urine touches her stitches. Tolerating meals overnight and able to ambulate some. Has some persistent lochia with some improvement this morning. Currently breast feeding. Review of Systems Constitutional: no fever, no chills and no sweats Respiratory: no cough, no dyspnea and no wheezing Cardiovascular: no chest pain, no palpitations and no calf pain Genitourinary: no dysuria Neurologic: no headache(s) Physical Exam Constitutional: WD/WN, vitals as above no acute distress Respiratory: no respiratory distress Auscultation: lungs clear to a uscultation bilaterally; no rales, no rhonchi and no wheezes Cardiovascular: RRR, no murmur, no edema Extremities: no calf tenderness and no edema Negative En's sign bilaterally. Gastrointestinal (Abdomen): Inspection/Auscultation: normal bowel sounds Genitourinary: Uterine fundus firm, palpable below the umbilicus. Results & Data Vital Signs (Past 12 Hours) Vital Signs Temp Pulse Pulse Resp BP BP Pulse Ox 02/28/23 02:05 36.9 C 87 16 98/62 L 02/27/23 22:10 36.9 C 115 H 18 91/67 L 02/27/23 21:40 36.8 C 20 02/27/23 21:10 18 02/27/23 20:40 18 02/27/23 20:25 18 02/27/23 20:10 20 02/27/23 19:55 18 02/27/23 19:40 18 02/27/23 21:41 99 H 02/27/23 21:41 110/74 02/27/23 21:26 93 H 02/27/23 21:26 107/66 02/27/23 21:11 85 02/27/23 21:11 118/67 02/27/23 20:56 80 02/27/23 20:56 113/72 02/27/23 20:41 82 02/27/23 20:41 112/70 02/27/23 20:27 82 02/27/23 20:27 109/69 02/27/23 19:56 89 02/27/23 19:56 115/72 02/27/23 19:41 82 02/27/23 19:41 106/63 02/27/23 19:32 85 02/27/23 19:32 124/57 L 02/27/23 19:27 98 02/27/23 19:27 86 02/27/23 19:22 98 02/27/23 19:22 82 02/27/23 19:17 88 L 02/27/23 19:17 111 H 02/27/23 19:17 112 H 02/27/23 19:17 146/61 H 02/27/23 19:11 99 02/27/23 19:11 100 H 02/27/23 19:06 99 02/27/23 19:06 93 H 02/27/23 19:03 100 H 02/27/23 19:03 148/66 H 02/27/23 19:02 91 02/27/23 19:02 105 H 02/27/23 19:01 99 02/27/23 19:01 104 H 02/27/23 18:56 84 L 02/27/23 18:56 123 H 02/27/23 18:51 100 02/27/23 18:51 105 H 02/27/23 18:50 93 05/12/23 18:50 102 H 02/27/23 18:46 100 02/27/23 18:46 84 02/27/23 18:47 89 02/27/23 18:47 104/58 L 02/27/23 18:45 91 02/27/23 18:45 112 H 02/27/23 18:41 97 02/27/23 18:41 98 H 02/27/23 18:40 91 02/27/23 18:40 103 H 02/27/23 18:36 100 02/27/23 18:36 107 H 02/27/23 18:32 90 02/27/23 18:32 105/60 02/27/23 18:31 99 02/27/23 18:31 93 H 02/27/23 18:29 94 02/27/23 18:29 113 H 02/27/23 18:26 100 02/27/23 18:26 99 H 02/27/23 18:21 83 L 02/27/23 18:21 138 H 02/27/23 18:16 100 02/27/23 18:16 89 02/27/23 18:17 90 02/27/23 18:17 106/57 L 02/27/23 18:11 100 02/27/23 18:11 105 H 02/27/23 18:06 100 02/27/23 18:06 104 H 02/27/23 18:03 101 H 02/27/23 18:03 116/53 L 02/27/23 18:02 92 02/27/23 18:02 126 H 02/27/23 18:01 100 02/27/23 18:01 99 H O2 Del Method 02/28/23 02:05 Room Air 02/27/23 22:10 Room Air 02/27/23 21:40 02/27/23 21:10 02/27/23 20:40 02/27/23 20:25 02/27/23 20:10 02/27/23 19:55 02/27/23 19:40 02/27/23 21:41 02/27/23 21:41 02/27/23 21:26 02/27/23 21:26 02/27/23 21:11 02/27/23 21:11 02/27/23 20:56 02/27/23 20:56 02/27/23 20:41 02/27/23 20:41 02/27/23 20:27 02/27/23 20:27 02/27/23 19:56 02/27/23 19:56 02/27/23 19:41 02/27/23 19:41 02/27/23 19:32 02/27/23 19:32 02/27/23 19:27 02/27/23 19:27 02/27/23 19:22 02/27/23 19:22 02/27/23 19:17 02/27/23 19:17 02/27/23 19:17 02/27/23 19:17 02/27/23 19:11 02/27/23 19:11 02/27/23 19:06 02/27/23 19:06 02/27/23 19:03 02/27/23 19:03 02/27/23 19:02 02/27/23 19:02 02/27/23 19:01 02/27/23 19:01 02/27/23 18:56 02/27/23 18:56 02/27/23 18:51 02/27/23 18:51 02/27/23 18:50 02/27/23 18:50 02/27/23 18:46 02/27/23 18:46 02/27/23 18:47 02/27/23 18:47 02/27/23 18:45 02/27/23 18:45 02/27/23 18:41 02/27/23 18:41 02/27/23 18:40 02/27/23 18:40 02/27/23 18:36 02/27/23 18:36 02/27/23 18:32 02/27/23 18:32 02/27/23 18:31 02/27/23 18:31 02/27/23 18:29 02/27/23 18:29 02/27/23 18:26 02/27/23 18:26 02/27/23 18:21 02/27/23 18:21 02/27/23 18:16 02/27/23 18:16 02/27/23 18:17 02/27/23 18:17 02/27/23 18:11 02/27/23 18:11 02/27/23 18:06 02/27/23 18:06 02/27/23 18:03 02/27/23 18:03 02/27/23 18:02 02/27/23 18:02 02/27/23 18:01 02/27/23 18:01 Resident Activity Tracking Resident Involvement: Resident Care Provided Care Provided: OB Delivery
[2023-02-28] MEDS: IBUPROFEN 600 MG TAB PO PRN (06:21)
[2023-02-28] MEDS ORDERED: FERROUS SULFATE 325 MG TAB PO SCH (08:00)
[2023-02-28] MEDS ORDERED: PRENATAL VITAMIN 1 TAB PO SCH (08:00)
[2023-02-28] MEDS: DOCUSATE SODIUM 100 MG CAP PO SCH ×2 (08:03→20:00)
[2023-02-28] MEDS ORDERED: bisacodyL 5 MG TABEC PO SCH (20:00)
== END 2023-02-28 20:27 | disposition home or self-care (01) | DRG 807 ==
LOC: 4S1 16:56 → 4E2 02-27 22:23